=== PATIENT | male | born 1960 | race Two or more races ===

== ENCOUNTER 2021-10-04 17:32 | Emergency (ER) | payer MEDICAID, OTHER ==
[~2021-10-04] VITALS: Ht 182.9 cm; Wt 111.1 kg
[2021-10-04] MEDS ORDERED: ASPirin 81 mg TAB PO ONE (18:45)
[2021-10-04 19:22] LABS: Basophils # (auto) 0.1 10 ^3/uL (0-0.2); Basophils % (auto) 0.5 % (0.0-2.0); Eosinophils # (auto) 0 10 ^3/uL (0-0.8); Eosinophils % (auto) 0.2 % (0.0-7.0); Hematocrit 41.7 % (41.0-53.0); Hemoglobin 14.3 g/dL (13.5-17.5); Lymphocytes # (auto) 0.8 10 ^3/uL (0.4-5.4); Lymphocytes % (auto) 5.8 % (10.0-50.0); Mean Corpuscular Hemoglobin 33.5 pg (28.0-32.0); Mean Corpuscular Hgb Conc. 34.3 g/dL (32.0-36.0); Mean Corpuscular Volume 97.7 fL (80.0-100.0); Monocytes # (auto) 0 10 ^3/uL (0-1.3); Monocytes % (auto) 0.2 % (0.0-12.0); Neutrophils # (auto) 12.2 10 ^3/uL (1.6-8.6); Neutrophils % (auto) 93.3 % (37.0-80.0); Red Blood Cells 4.27 10^6/uL (4.5-5.90); Red Cell Distribution Width 14.2 % (11.8-14.3); White Blood Cell 13.1 10^3/uL (4.4-10.8)
[2021-10-04 19:38] LABS: Partial Thromboplastin Time 23.6 sec (23.6-33.0)
[2021-10-04 19:44] LABS: Albumin 3.1 g/dL (3.4-5.0); BUN/Creatinine Ratio 39.7; Calcium 8.5 mg/dL (8.5-10.1); Potassium 4.3 mmol/L (3.5-5.1)
[2021-10-04 19:47] LABS: Bilirubin, Total 0.3 mg/dL (0.2-1.0); Total Protein 6.1 g/dL (6.4-8.2)
[2021-10-04 21:59] VITALS: BP 145/87
== END 2021-10-04 22:01 | disposition home or self-care (01) ==
LOC: ER 17:32
DX: R22.40 Localized swelling, mass and lump, unspecified lower limb (principal); Z88.0 Allergy status to penicillin
CPT/HCPCS: 36415; 71045; 80053; 83880; 84484; 85025; 85379; 85610; 85730; 93005; 93970